=== PATIENT | male | born 1965 | race Caucasian/White ===

== ENCOUNTER 2019-04-28 19:31 | Observation (INO) ==
[2019-04-28 20:21] LABS: Basophils % 0.5 %; Eosinophils # 0.2 K/mcL (0.0-0.6); Hematocrit 40.2 % (37.5-50.1); Hemoglobin 13.7 g/dL (12.9-16.9); Lymphocytes # 2.6 K/mcL (0.6-4.6); Lymphocytes % 32.7 %; Mean Corpuscular HGB Conc 34.1 g/dL (31.6-35.5); Mean Corpuscular Hemoglobin 31.7 pg (28.0-33.3); Mean Corpuscular Volume 93.1 fL (83.0-100.0); Mean Platelet Volume 10.4 fL (9.4-12.4); Monocytes # 0.6 K/mcL (0.0-1.3); Monocytes % 7.2 %; Neutrophils # 4.4 K/mcL (1.6-8.9); Platelet Count 182 K/mcL (140-400); Red Blood Count 4.32 M/mcL (4.19-5.50); Red Cell Distribution Width 12.2 % (11.5-14.5); Segmented Neutrophils % 55.6 %; White Blood Count 7.9 K/mcL (4.3-11.1)
[2019-04-28] MEDS ORDERED: Aspirin 81 MG TAB.CHEW PO STA (20:21)
[2019-04-28 20:29] LABS: Prothrombin Time 10.8 Seconds (9.4-12.1)
[2019-04-28 20:32] LABS: Activated Partial Thrombo Time 32.6 Seconds (26.0-36.0)
[2019-04-28 20:38] LABS: BUN/Creatinine Ratio 13 (6-26); Blood Urea Nitrogen 11 mg/dL (6-20); Calcium 9.2 mg/dL (8.6-10.3); Carbon Dioxide 22 mEq/L (23-29); Chloride 105 mEq/L (98-107); Glucose 267 mg/dL (70-105); Osmolality,Calculated 295 (280-300); Potassium 4.1 mEq/L (3.5-5.1); Sodium 138 mEq/L (136-145); Troponin I < 0.03 ng/mL (< 0.04); eGFR For African Americans > 60 (> 60); eGFR For Non-African Americans > 60 (> 60)
[2019-04-28] MEDS: Nitroglycerin 0.4 MG TAB.SUBL SL SCH ×2 (21:10→21:15)
[2019-04-29] MEDS ORDERED: Nitroglycerin 0.4 MG TAB.SUBL SL PRN (00:06)
[2019-04-29] MEDS ORDERED: D5% in Water 1,000 ML IVC PRN (00:06)
[2019-04-29] MEDS ORDERED: *HR* Dextrose 50 % in Water (Syg) 50 ML SYRINGE IVP PRN (00:06)
[2019-04-29] MEDS ORDERED: Morphine Sulfate 2 MG/ML SYRINGE IVP PRN (00:06)
[2019-04-29] MEDS ORDERED: Naloxone 0.4 MG/ML INJ IVP PRN (00:06)
[2019-04-29] MEDS ORDERED: Dextrose Gel 15 GM/37.5 ML TUBE PO PRN ×2 (00:06)
[2019-04-29] MEDS ORDERED: 0.9 % Sodium Chloride 1,000 ML IVC SCH (00:15)
[2019-04-29 00:44] LABS: Basophils # 0.1 K/mcL (0.0-0.2); Basophils % 0.7 %; Eosinophils # 0.3 K/mcL (0.0-0.6); Eosinophils % 3.2 %; Hematocrit 40.3 % (37.5-50.1); Hemoglobin 14.2 g/dL (12.9-16.9); Immature Granulocytes % 0.9 % (0-4); Lymphocytes # 3.2 K/mcL (0.6-4.6); Mean Corpuscular HGB Conc 35.2 g/dL (31.6-35.5); Mean Corpuscular Hemoglobin 32.3 pg (28.0-33.3); Mean Corpuscular Volume 91.6 fL (83.0-100.0); Mean Platelet Volume 10.7 fL (9.4-12.4); Monocytes # 0.5 K/mcL (0.0-1.3); Monocytes % 6.2 %; Neutrophils # 4.5 K/mcL (1.6-8.9); Platelet Count 193 K/mcL (140-400); Red Cell Distribution Width 12.3 % (11.5-14.5); White Blood Count 8.7 K/mcL (4.3-11.1)
[2019-04-29 00:46] LABS: VBG HCO3 24 mEq/L (21-27); VBG PCO2 40 mmHg (41-51); VBG PH 7.39 pH Units (7.32-7.42); VBG PO2 154 mmHg (25-50)
[2019-04-29] MEDS: Insulin LISPRO 300 UNITS/3 ML VIAL SQ SCH ×5 (00:51→20:36)
[2019-04-29 00:53] LABS: INR 0.9; Prothrombin Time 10.3 Seconds (9.4-12.1)
[2019-04-29] MEDS: Nitroglycerin 0.4 MG TAB.SUBL SL SCH (00:53)
[2019-04-29 01:38] LABS: Bilirubin,Urine Negative (Negative); Blood,Urine Negative (Negative); Clarity,Urine Clear (Clear); Color,Urine Yellow (Yellow); Glucose,Urine (UA) Normal (Normal); Ketones,Urine Trace mg/dL (Negative); Leukocyte Esterase,Urine Negative (Negative); Nitrite,Urine Negative (Negative); PH,Urine 5.5 pH Units (5.0-8.0); Protein,Urine Negative (Neg-Trace); Specific Gravity,Urine > 1.030 (1.010-1.025); Urobilinogen,Urine Normal (Normal)
[2019-04-29 01:51] LABS: Amphetamine Screen,Urine Negative ng/mL (Cutoff=1000); Barbiturate Screen,Urine Negative ng/mL (Cutoff=200); Benzodiazepines Screen,Urine Negative ng/mL (Cutoff=200); Cannabinoid Screen,Urine Negative ng/mL (Cutoff = 50); Cocaine Screen,Urine Negative ng/mL (Cutoff= 300); Opiate Screen,Urine Negative ng/mL (Cutoff=300); Phencyclidine Screen,Urine Negative ng/mL (Cutoff=25)
[2019-04-29 01:52] LABS: Alanine Aminotransferase 41 Units/L (7-52); Albumin 4.1 g/dL (3.5-5.7); Albumin/Globulin Ratio 2.1 (1.1-2.2); Alkaline Phosphatase 61 Units/L (34-104); Aspartate Amino Transferase 22 Units/L (13-39); BUN/Creatinine Ratio 15 (6-26); Bilirubin,Total 0.4 mg/dL (0.3-1.0); Blood Urea Nitrogen 12 mg/dL (6-20); Calcium 8.5 mg/dL (8.6-10.3); Carbon Dioxide 20 mEq/L (23-29); Chloride 104 mEq/L (98-107); Chol/HDL Ratio 1.1 (0-4.9); Cholesterol 38 mg/dL (< 200); Glucose 164 mg/dL (70-105); HDL Cholesterol 34 mg/dL (40-59); LDL Cholesterol,Calculated -10 mg/dL (0-99); Magnesium 1.7 mg/dL (1.6-2.6); Osmolality,Calculated 285 (280-300); Phosphorous 4.6 mg/dL (2.7-4.5); Potassium 3.6 mEq/L (3.5-5.1); Sodium 136 mEq/L (136-145); Total Protein 6.1 g/dL (6.4-8.9); Triglycerides 71 mg/dL (< 150); eGFR For African Americans > 60 (> 60); eGFR For Non-African Americans > 60 (> 60)
[2019-04-29] MEDS: *HR* Heparin 5,000 UNIT/ML VIAL SQ SCH ×3 (05:55→21:17)
[2019-04-29] MEDS ORDERED: Regadenoson 0.4 MG/5 ML SYRINGE IVP ONE (07:02)
[2019-04-29] MEDS: Aspirin Enteric Coated 81 MG Tablet PO SCH (09:24)
[2019-04-29] MEDS ORDERED: Acetaminophen 325 MG TABLET PO PRN ×2 (21:18→21:19)
[2019-04-30] MEDS: *HR* Heparin 5,000 UNIT/ML VIAL SQ SCH (05:50)
[2019-04-30 06:09] LABS: Hematocrit 40.5 % (37.5-50.1); Hemoglobin 13.8 g/dL (12.9-16.9); Mean Corpuscular HGB Conc 34.1 g/dL (31.6-35.5); Mean Corpuscular Hemoglobin 31.7 pg (28.0-33.3); Mean Corpuscular Volume 92.9 fL (83.0-100.0); Mean Platelet Volume 10.5 fL (9.4-12.4); Platelet Count 168 K/mcL (140-400); Red Blood Count 4.36 M/mcL (4.19-5.50); Red Cell Distribution Width 12.3 % (11.5-14.5); White Blood Count 6.2 K/mcL (4.3-11.1)
[2019-04-30 06:29] LABS: BUN/Creatinine Ratio 17 (6-26); Blood Urea Nitrogen 12 mg/dL (6-20); Calcium 8.9 mg/dL (8.6-10.3); Carbon Dioxide 26 mEq/L (23-29); Chloride 103 mEq/L (98-107); Glucose 269 mg/dL (70-105); Osmolality,Calculated 293 (280-300); Potassium 4.1 mEq/L (3.5-5.1); Sodium 137 mEq/L (136-145); eGFR For African Americans > 60 (> 60); eGFR For Non-African Americans > 60 (> 60)
[2019-04-30] MEDS: Insulin LISPRO 300 UNITS/3 ML VIAL SQ SCH ×2 (08:19→11:46)
[2019-04-30] MEDS: Aspirin Enteric Coated 81 MG Tablet PO SCH (08:19)
[2019-04-30 08:33] LABS: Estimated Average Glucose 212 mg/dl
[2019-04-30 12:50] VITALS: BP 148/89
== END 2019-04-30 13:14 | disposition home or self-care (01) ==
LOC: 3BNU 19:31 → EMEROOARM 19:31 → 3BNU 23:37
PROVIDERS: ADMIT Family Medicine; ATTEND Family Medicine